=== PATIENT | female | born 1955 | race Caucasian/White ===

== ENCOUNTER 2018-07-26 10:18 | Emergency (ER) | payer BC ==
[~2018-07-26] VITALS: Ht 157.5 cm; Wt 116.0 kg
--- NOTE | 2018-07-26 10:31 | NUR ---
BIB [facility] FROM [facility]/ WITH SUDDEN ONSET OF GENERALIZED ABD PAIN WITH ONE EPISODE OF VOMITING. GIVEN 4MG IM OF ZOFRAN. PT KICKING AND SCREAMING IN GURNEY. HYPERVENTALATING. PT STATING 10/10 ABD PAIN. PT ANXIOUS, UNCOOPERATIVE, AND RESTLESS. PT UNWILLING TO ANSWER MORE QUESTIONS. PT BREATHING RAPID AND LABORED. MILD AMOUNT OF DISTRESS NOTED. PT ON CONT. PULSE OX AND BP. AWAITING EVAL AND ORDERS.
--- NOTE | 2018-07-26 11:00 | NUR ---
ERMD AT BEDSIDE
[2018-07-26] MEDS ORDERED: HYDROmorphone 1 MG/ML, 1ML ONE (11:14)
--- NOTE | 2018-07-26 11:18 | NUR ---
PT MEDICATED PER VERBAL FROM ERMD. POC UPDATED. AWAITING FURTHER ORDERS.
[2018-07-26] MEDS ORDERED: HYDROmorphone 1 MG/ML, 1ML IM ONE (11:30)
[2018-07-26] MEDS ORDERED: SODIUM CHLORIDE FLUSH 10ML SYR IVF ONE (11:30)
--- NOTE | 2018-07-26 11:35 | NUR ---
US AT BEDSIDE.
[2018-07-26 12:00] LABS: BASOPHILS # (AUTO) 0.04 x10^3/uL (0-0.1); BASOPHILS % (AUTO) 0 % (0-1); EOSINOPHILS % (AUTO) 0 % (1-7); LYMPHOCYTES # (AUTO) 1.64 x10^3/uL (1-3.4); LYMPHOCYTES % (AUTO) 12 % (22-44); MD NO; MEAN CORPUSCULAR HEMOGLOBIN 30.8 pg (27.0-34.8); MEAN CORPUSCULAR HGB CONC 33.9 g/dL (32.4-35.8); MEAN CORPUSCULAR VOLUME 90.9 fL (80-100); MEAN PLATELET VOLUME 7.4 fL (7.4-10.4); MONOCYTES % (AUTO) 1 % (2-9); NEUTROPHILS # (AUTO) 12.15 x10^3/uL (1.8-6.8); NEUTROPHILS % (AUTO) 87 % (42-75); PLATELET COUNT 291 x10^3/uL (130-400); RED BLOOD COUNT 4.16 x10^6/uL (3.82-5.3); RED CELL DISTRIBUTION WIDTH 14.2 % (9.6-15.2)
[2018-07-26 12:10] LABS: ALANINE AMINOTRANSFERASE 26 U/L (12-78); ALBUMIN 3.8 g/dL (3.4-5.0); ANION GAP 10 mmol/L (5-15); CALCIUM 8.7 mg/dL (8.5-10.1); CHLORIDE 112 mmol/L (98-107); CREATININE 0.99 mg/dL (0.55-1.02)
[2018-07-26 12:12] LABS: ALKALINE PHOSPHATASE 59 U/L (45-117); BILIRUBIN,TOTAL 0.4 mg/dL (0.2-1.0)
--- NOTE | 2018-07-26 12:34 | NUR ---
PT BACK FROM X-RAY AT THIS TIME.
--- NOTE | 2018-07-26 12:49 | NUR ---
PT UP TO RESTROOM WITH ASSTIANCE. PT ABLE TO COLLECT URINE SAMPLE. SAMPLE SENT TO LOBBY.
[2018-07-26 13:20] LABS: MICROSCOPIC INDICATED
[2018-07-26 13:36] LABS: CULTURE INDICATED? NO
--- NOTE | 2018-07-26 13:49 | NUR ---
PT RESTING COMFORTABELY IN [facility]. POC UPDATED. IV STARTED. AWAITING CT.
[2018-07-26] MEDS ORDERED: OMNIPAQUE 350 MG/ML, 100ML BOTTLE ONE (14:51)
[2018-07-26 15:10] VITALS: BP 104/56
== END 2018-07-26 16:27 | disposition home or self-care (01) ==
LOC: ED 15:45
DX: R10.84 Generalized abdominal pain (principal); R11.2 Nausea with vomiting, unspecified
CPT/HCPCS: 36415; 74021; 74177; 76700; 80053; 81001; 83690; 85025; 93005; 96372; 99284; J1170; Q9967

== ENCOUNTER → 2018-07-29 | Outpatient (CLI) | payer BC | END | disposition home or self-care (01) | LOC: CFH 09:49 | PROVIDERS: ATTEND Obstetrics & Gynecology | DX: Z12.31 Encounter for screening mammogram for malignant neoplasm of breast (principal) | CPT/HCPCS: 77063; 77067 ==